=== PATIENT | female | born 1965 | race Caucasian/White ===

== ENCOUNTER 2024-12-09 13:36 | Day surgery (SDC) | payer MEDICAID, SELFPAY ==
--- NOTE | 2024-12-06 18:37 | PAT.ANESEVAL ---
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 When Was Last Pacemaker Check QUESTION #4 FULL TEXT: You/Your Family Experience fever (hyperthermia) with Anesthesia Last Oral Intake Last Oral intake: Last Oral Intake NPO since Meds taken in AM with sips of water? 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 Has anyone observed you stop No 12/06/24 09:40 breathing during sleep? STOP Results Positive 12/06/24 09:40 QUESTION #5 FULL TEXT : Do you snore loudly (louder than talking or can be heard through closed doors)? 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 Specify any problems Hx of Preganancy in last 3 No 12/06/24 09:40 Months Nurse Filling Out Transfusion DSCHRIBER 12/06/24 09:40 & Questions: Date: 12/06/24 12/06/24 09:40 Time: 09:42 12/06/24 09:40 Patient unable to answer at this time (ie. 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 grinder mill operator Hx Now No 12/06/24 09:40 Gestational Age (in weeks): EDC: Hx Hx Para Hx Section SAB No 12/06/24 09:40 PFSH Medical History (Updated 12/06/24 @ 09:55 by Marisa Chahal) Wears partial dentures Post-menopausal Depression Restless legs Syncope Smoker History of stress test History of echocardiogram Cardiology follow-up encounter Chest pain Scarring of lung RLQ abdominal pain Osteoporosis Aortic arch atherosclerosis HTN (hypertension) Constipation Home Medications ?Medication ?Instructions ?Recorded ?Last Taken ?Type amlodipine 5 mg tablet 5 mg PO QDAY 10/14/24 Unknown History aspirin 81 mg tablet,delayed 81 mg PO QDAY 10/14/24 Unknown History release atorvastatin 80 mg tablet 80 mg PO QHS 10/14/24 Unknown History bupropion HCl 150 mg 24 hr tablet, 150 mg PO QAM 10/14/24 Unknown History extended release clopidogrel 75 mg tablet 75 mg PO QDAY 10/14/24 Unknown History docusate calcium 240 mg capsule 240 mg PO QDAY 10/14/24 Unknown History ezetimibe 10 mg tablet 10 mg PO QDAY 10/14/24 Unknown History melatonin 3 mg capsule 3 mg PO HS PRN sleep 10/14/24 Unknown History ondansetron 4 mg disintegrating 4 mg PO Q6H PRN nausea and vomiting 10/14/24 Unknown History tablet polyethylene glycol 3350 17 gram 17 g PO QDAY PRN constipation 10/14/24 Unknown History oral powder packet ranolazine 500 mg tablet,extended 500 mg PO BID 10/14/24 Unknown History release,12 hr wheat dextrin 3 gram/4 gram oral 1.5 g PO BID 10/14/24 Unknown History powder Allergy/AdvReac Type Severity Reaction Status Date / Time lisinopril AdvReac Intermediate Other Verified 12/06/24 09:35 nitroglycerin AdvReac Intermediate Other Verified 12/06/24 09:35 Family History Father Alcohol abuse Mother Heart disease Brother Migraine Surgical History (Updated 12/06/24 @ 09:55 by Marisa Chahal) History of cardiac catheterization Hx of knee surgery History of coronary artery stent placement Social History housing: house Smoking Status: Current every day smoker tobacco type: cigarettes alcohol intake: never substance use type: does not use well-balanced diet: daily or most days caffeine: Yes Type: carbonated beverages Number of servings: 4 Audit: Pertinent Findings Pertinent Findings EKG Perinent findings: December 05, 2024. Sinus rhythm Stress test pertinent findings: February 02, 2024. Mildly positive for ischemia on EKG. Nuclear imaging showed grossly no ischemia or infarct. Ejection fraction was 66% with normal perfusion. Perfusion was similar in 2022. Echo (EF%) pertinent findings: April 25, 2024. Ejection fraction 60 to 65%. No aortic stenosis noted. Heart catheterization pertinent findings: April 25, 2024. 1. Normal systolic ejection fraction of 55 to 60%. 2. Previous drug-eluting stent to the mid LAD-patent 3. Previous drug-eluting stent to the proximal left circumflex?patent. 4. Right coronary artery is normal sized and has moderate diffuse disease. 5. Continue aggressive medical therapy and risk factor modification. Consult pertinent findings: July 28, 2024. 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 1. Vertigo-patient has a prescription for meclizine. 2. Fatigue-she has been weaned off metoprolol after the last visit. 3. Atypical chest pain-patient reports improved symptoms with initiation of Ranexa. Patient is intolerant to nitroglycerin and isosorbide. She will continue amlodipine. There is a significant chance that the heartburn or esophageal spasm is the etiology of her symptoms. 4. Coronary artery disease?stable per last cardiac cath Recommendation Anesthesia Recommendation Anesthesia recommendation: OPTIMIZED for anesthesia
[2024-12-09] VITALS (8 sets, daily range): BP systolic 85–140; BP diastolic 63–73; PULSE 72–85; RESP 14–20; TEMP 36.3–36.8; O2SAT 92–100; BMI 25.1
--- NOTE | 2024-12-09 13:46 | PCM.PRE.AN2 ---
ASA Classification* ASA Classification ASA Classification: 2 Assessment & Plan Anesthesia* Anesthesia Assessment Anesthesia Assessment: Discussed sedation and/or anesthesia options, risks, benefits, and alternatives with patient/parents/legal guardian/POA. Questions invited. The patient/parents/legal guardian/POA seems to understand and agrees to proceed with anesthesia plan. Reviewed the physical assessment, medical history, allergy history and patient home medications list prior to surgery/procedure/anesthetic and documented any changes. Performed airway and anesthesia risk assessments. 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 When Was Last Pacemaker Check QUESTION #4 FULL TEXT: You/Your Family Experience fever (hyperthermia) with Anesthesia Last Oral Intake Last Oral intake: Last Oral Intake NPO since Meds taken in AM with sips of water? 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 regional consultant Female Yes 12/06/24 09:40 HX of Motion Sickness No 12/06/24 09:40 HX of N/V After Surgery No 12/06/24 09:40 Non-Smoker No 12/06/24 09:40 Duration of Surgery greater No 12/06/24 09:40 than 60 minutes Number of Risk Factors 1 12/06/24 09:40 PONV Score Low Risk 12/06/24 09:40 Respiratory Assessment Respiratory Assessment - marketing regional consultant: Respiratory Tract Infection Hx - marketing regional consultant Hx Respiratory Tract Infection No 12/06/24 09:40 STOP Sleep Apnea STOP Sleep Apnea - marketing regional consultant: STOP Sleep Apnea - marketing regional consultant Hx Hypertension Yes: CONTROLLED WITH MEDS 12/06/24 09:40 Hx Sleep Apnea No 12/06/24 09:40 CPAP BIPAP Do you snore loudly (louder No 12/06/24 09:40 than talking or can be heard Do you often feel tired/ Yes 12/06/24 09:40 fatigued/ sleepy during daytime? Has anyone observed you stop No 12/06/24 09:40 breathing during sleep? STOP Results Positive 12/06/24 09:40 QUESTION #5 FULL TEXT : Do you snore loudly (louder than talking or can be heard through closed doors)? 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 Specify any problems Hx of Preganancy in last 3 No 12/06/24 09:40 Months Nurse Filling Out Transfusion DSCHRIBER 12/06/24 09:40 & Questions: Date: 12/06/24 12/06/24 09:40 Time: 09:42 12/06/24 09:40 Patient unable to answer at this time (ie. confused, unrespo /Reproduction History /Reproductive History - marketing regional consultant: /Reproductive Hx- marketing regional consultant Hx Now No 12/06/24 09:40 Gestational Age (in weeks): EDC: Hx Hx Para Hx Section SAB No 12/06/24 09:40 PFSH Medical History Wears partial dentures Post-menopausal Depression Restless legs Syncope Smoker History of stress test History of echocardiogram Cardiology follow-up encounter Chest pain Scarring of lung RLQ abdominal pain Osteoporosis Aortic arch atherosclerosis HTN (hypertension) Constipation Home Medications ?Medication ?Instructions ?Recorded ?Last Taken ?Type amlodipine 5 mg tablet 5 mg PO QDAY 10/14/24 Unknown History aspirin 81 mg tablet,delayed 81 mg PO QDAY 10/14/24 Unknown History release atorvastatin 80 mg tablet 80 mg PO QHS 10/14/24 Unknown History bupropion HCl 150 mg 24 hr tablet, 150 mg PO QAM 10/14/24 Unknown History extended release clopidogrel 75 mg tablet 75 mg PO QDAY 10/14/24 Unknown History docusate calcium 240 mg capsule 240 mg PO QDAY 10/14/24 Unknown History ezetimibe 10 mg tablet 10 mg PO QDAY 10/14/24 Unknown History melatonin 3 mg capsule 3 mg PO HS PRN sleep 10/14/24 Unknown History ondansetron 4 mg disintegrating 4 mg PO Q6H PRN nausea and vomiting 10/14/24 Unknown History tablet polyethylene glycol 3350 17 gram 17 g PO QDAY PRN constipation 10/14/24 Unknown History oral powder packet ranolazine 500 mg tablet,extended 500 mg PO BID 10/14/24 Unknown History release,12 hr wheat dextrin 3 gram/4 gram oral 1.5 g PO BID 10/14/24 Unknown History powder Allergy/AdvReac Type Severity Reaction Status Date / Time lisinopril AdvReac Intermediate Other Verified 12/06/24 09:35 nitroglycerin AdvReac Intermediate Other Verified 12/06/24 09:35 Family History Father Alcohol abuse Mother Heart disease Brother Migraine Surgical History History of cardiac catheterization Hx of knee surgery History of coronary artery stent placement Social History housing: house Smoking Status: Current every day smoker tobacco type: cigarettes alcohol intake: never substance use type: does not use well-balanced diet: daily or most days caffeine: Yes Type: carbonated beverages Number of servings: 4 Review of Systems (Anesthesia) ROS Narrative System reviewed and no additional complaints, except as documented.
--- NOTE | 2024-12-09 14:45 | COLBX_PTH ---
PATIENT: ROBER STOVER LOC: EN U#:[id number] AGE/SX: 59/F ROOM: RE12/09/[address]: Dr. Bj George DO : 1965 BED: DIS: 12/09/2024 SPEC #: [id number] RECD: 12/09/24 17:04 STATUS: REJI ZUNIGA #: [id number] ALEXEI: 12/09/24 14:[address]: Bj George DEPT: SURGICAL PATHOLOGY RECD BY: Bree Jorge ENTERED: 12/12/24 08:03 SP TYPE: COLON BX JESSIKA DR: Dr. Best Younger DO Tissues: A - COLON BIOPSY B - Ascending colon C - Rectum, NOS Procedures: Surgery Specimen Level IV HEADER OPERATION: Colonoscopy, polypectomy, biopsy PRE-OP DIAGNOSIS: Constipation TISSUE SUBMITTED: A- Splenic flexure polyp, B- Ascending colon polyp, C- Rectal polyp biopsy MICROSCOPIC DIAGNOSIS A. Colon, Splenic Flexure, Polyp, Biopsy: * Tubular adenoma. B. Ascending Colon, Polyp, Biopsy: * Tubular adenoma. C. Rectum, Polyp, Biopsy: * Hyperplastic polyp. MICROSCOPIC DESCRIPTION Slides are reviewed. GROSS DESCRIPTION A. Received in formalin in a container labeled with the patient's name, date of , and splenic flexure polyp are multiple fragments of diaz-brown possible soft tissue admixed with fecal debris measuring 2.3 x 0.7 x 0.2 cm in aggregate. The soft tissue is unable to be . Entirely submitted in A1. B. Received in formalin in a container labeled with the patient's name, date of , and ascending colon polyp is a 0.6 x 0.3 x 0.2 cm fragment of diaz-pink mucosal tissue. Entirely submitted in B1. C. Received in formalin in a container labeled with the patient's name, date of , and rectal polyp biopsy is a 0.3 x 0.3 x 0.3 cm fragment of diaz-pink mucosal tissue. Entirely submitted in C1. [facility] 12-12-2024 CPT:22647z3
--- NOTE | 2024-12-09 14:56 | PCM.HP.STD ---
HPI - General General Date of Admission: 12/09/24 Date of Service: 12/09/24 Chief Complaint: constipation and Screening colon HPI Narrative ROBER STOVER, is a 59 F who presents for the evaluation of constipation Pt referred from her PCP for evaluation of constipation. She is having a bm once a day but is small and difficult to pass. Prior to this she was having loose stools for years. This has been going on since going on a new medication for her heart over a month ago. Unsure which med but thinks it may be amlodipine. She has never had a colonoscopy but is open to having one. She has tried miralax, fiber, suppositories, enemas, and lactulose. Only lactulose gave her results but was only given 4 days worth of treatment. Has some bleeding when she wipes due to straining. She is feeling bloated. She denies abd pain, n/v, heartburn, melena, loss of appetite or unintentional weight loss. She is not aware of any fail hx of colon cancer. Denies hx of drinking alcohol. She has smoked cigarettes for years; currently smoking 4 cigarettes a day. Abdominal x-ray 09.30.24; No bowel obstruction. fecal loading of the colon. [facility] Medical History Wears partial dentures Post-menopausal Depression Restless legs Syncope Smoker History of stress test History of echocardiogram Cardiology follow-up encounter Chest pain Scarring of lung RLQ abdominal pain Osteoporosis Aortic arch atherosclerosis HTN (hypertension) Constipation Home Medications ?Medication ?Instructions ?Recorded ?Last Taken ?Type amlodipine 5 mg tablet 5 mg PO QDAY 10/14/24 Unknown History aspirin 81 mg tablet,delayed 81 mg PO QDAY 10/14/24 12/05/24 History release atorvastatin 80 mg tablet 80 mg PO QHS 10/14/24 Unknown History bupropion HCl 150 mg 24 hr tablet, 150 mg PO QAM 10/14/24 Unknown History extended release clopidogrel 75 mg tablet 75 mg PO QDAY 10/14/24 12/05/24 History docusate calcium 240 mg capsule 240 mg PO QDAY 10/14/24 Unknown History ezetimibe 10 mg tablet 10 mg PO QDAY 10/14/24 Unknown History melatonin 3 mg capsule 3 mg PO HS PRN sleep 10/14/24 Unknown History ondansetron 4 mg disintegrating 4 mg PO Q6H PRN nausea and vomiting 10/14/24 Unknown History tablet polyethylene glycol 3350 17 gram 17 g PO QDAY PRN constipation 10/14/24 Unknown History oral powder packet ranolazine 500 mg tablet,extended 500 mg PO BID 10/14/24 Unknown History release,12 hr wheat dextrin 3 gram/4 gram oral 1.5 g PO BID 10/14/24 Unknown History powder Allergy/AdvReac Type Severity Reaction Status Date / Time lisinopril AdvReac Intermediate Other Verified 12/09/24 14:06 nitroglycerin AdvReac Intermediate Other Verified 12/09/24 14:06 Family History Father Alcohol abuse Mother Heart disease Brother Migraine Surgical History History of cardiac catheterization Hx of knee surgery History of coronary artery stent placement Social History housing: house Smoking Status: Current every day smoker tobacco type: cigarettes alcohol intake: never substance use type: does not use well-balanced diet: daily or most days caffeine: Yes Type: carbonated beverages Number of servings: 4 ROS Constitutional Constitutional: Denies fatigue, fever(s), poor appetite, weight gain or weight loss Gastrointestinal Gastrointestinal: Denies belching, bloating, change in bowel habits, change in stool character, chewing difficulty, coffee ground emesis, constipation, cramping, diarrhea, dyspepsia, dysphagia, early satiety, excessive flatus, fecal incontinence, heartburn, hematemesis, hematochezia, hemorrhoids, loose stools, melena, nausea, odynophagia, rectal bleeding, tenesmus, vomiting or weight changes Vital Signs Vital Signs Vital Signs: 12/09/24 14:07 12/09/24 14:07 Temperature 97.8 F Temperature Source Temporal Pulse Rate 85 Respiratory Rate 16 Respiratory Pattern Normal Blood Pressure 140/73 H Blood Pressure Mean 95 Blood Pressure Source Monitor Blood Pressure Position Semi-Fowlers Blood Pressure Location Left Arm Pulse Ox 100 Oxygen Delivery Method Room Air Weight Weight: 141 lb 12.116 oz Body Mass Index (BMI) 25.1 Physical Exam Const alert, oriented x3, no apparent distress and healthy appearing General Appearance: cooperative GI normal to inspection, nondistended, normoactive bowel sounds, soft to palpation, non-tender and non-distended Percussion: normal to percussion Rectal Exam: deferred Assessment & Plan Assessment/Plan (1) Constipation: PLAN: Assessment and Plan Assessment and Plan (1) Constipation: Status: Acute Plan: This is a 59 yo female pt here today for evaluation of constipation x1 month. Pt has never had constipation prior to this. SHe does note a change in her medications around the time this started. Due to the abrupt onset of constipation, I feel colonoscopy is necessary considering she has never had one. She is agreeable and will be scheduled. In the mean time, samples of Linzess were given and she was educated on proper use. Prescription for Linzess 72 mcg daily sent to the pharmacy. She is taking fiber supplement daily and i encouraged she continue taking this.She will call our office if there are no improvements in her constipation after 2 weeks. -Colonoscopy -Start Linzess 72 mcg daily -Continue fiber supplement Medications: New linaclotide (Linzess) 72 mcg PO QAM 60 caps 2RF
--- NOTE | 2024-12-09 15:34 | PCM.POST.ANE ---
Anesthesia: Postop Eval I Current Vital Signs Temperature: 97.3 F Pulse Rate: 82 Blood Pressure: 93/65 Respiratory Rate: 18 Pulse Ox: 97 Oxygen Delivery Method: Room Air Assessment Airway patent: Yes Spontaneous unlabored respirations: Yes Mental status: Asleep nausea: No Vomiting: No Anesthesia Complication: No Fluid Hydration Crystalloid volume administer (ml): 40 Total IV fluid infused: 40 Progress Note Anesthesia document: Postop Eval 1 completed: Yes
--- NOTE | 2024-12-09 15:35 | OP.CCLET_ITS ---
12/09/2024 Best Younger Do Re : Colonoscopy procedure for Bel Smithr Carisa This procedure was performed on Monday, December 09, 2024. My impressions and recommendations are as follows: Impressions : - Preparation of the colon was fair. - Diverticulosis in the recto-sigmoid colon, in the sigmoid colon and in the descending colon. - Two 7 mm polyps in the rectum and in the ascending colon, removed with a jumbo cold forceps. Resected and retrieved. - One 10 mm polyp at the splenic flexure, removed with a hot snare. Resected and retrieved. Recommendations : - Repeat colonoscopy in 3 years for surveillance. - Continue present medications. My findings are described in the full procedure note, which is enclosed. If I can be of further assistance, please feel free to contact me at . Sincerely, Bj George, 12/09/2024 3:35:21 PM This report has been signed electronically.
--- NOTE | 2024-12-09 15:35 | OP.COLON_ITS ---
Patient Name: Bel Winston Procedure Date: 12/09/2024 3:01 PM Date of : 1965 Age: 59 Procedure: Colonoscopy Indications: Screening for colorectal malignant neoplasm Providers: Bj George DO Referring MD: Best Younger Do Medicines: Monitored Anesthesia Care Patient Profile: This is a 59 year old female. Refer to note in patient chart for documentation of history and physical. Last Colonoscopy: date unknown. Unable to locate last colonoscopy report. Complications: No immediate complications. Procedure: Pre-Anesthesia Assessment: - Prior to the procedure, a History and Physical was performed, and patient medications and allergies were reviewed. The patient is competent. The risks and benefits of the procedure and the sedation options and risks were discussed with the patient. All questions were answered and informed consent was obtained. Patient identification and proposed procedure were verified by the physician in the pre-procedure area. Mental Status Examination: alert and oriented. Airway Examination: normal oropharyngeal airway and neck mobility. Respiratory Examination: clear to auscultation. CV Examination: normal. ASA Grade Assessment: II - A patient with mild systemic disease. After reviewing the risks and benefits, the patient was deemed in satisfactory condition to undergo the procedure. The anesthesia plan was to use moderate sedation / analgesia (conscious sedation). Immediately prior to administration of medications, the patient was re-assessed for adequacy to receive sedatives. The heart rate, respiratory rate, oxygen saturations, blood pressure, adequacy of pulmonary ventilation, and response to care were monitored throughout the procedure. The physical status of the patient was re-assessed after the procedure. After I obtained informed consent, the scope was passed under direct vision. Throughout the procedure, the patient's blood pressure, pulse, and oxygen saturations were monitored continuously. The Colonoscope was introduced through the anus and advanced to the cecum, identified by appendiceal orifice and ileocecal valve. The colonoscopy was performed without difficulty. The patient tolerated the procedure well. The quality of the bowel preparation was fair. Scope In: 3:11:57 PM Scope Withdrawal Time 0 hours 5 minutes 59 seconds Scope Out: 3:23:42 PM Total Procedure Duration Time 0 hours 11 minutes 45 seconds Findings: The perianal and digital rectal examinations were normal. Multiple small and large-mouthed diverticula were found in the recto-sigmoid colon, sigmoid colon and descending colon. Two sessile polyps were found in the rectum and ascending colon. The polyps were 7 mm in size. These polyps were removed with a jumbo cold forceps. Resection and retrieval were complete. Verification of patient identification for the specimen was done. Estimated blood loss was minimal. A 10 mm polyp was found in the splenic flexure. The polyp was sessile. The polyp was removed with a hot snare. Resection and retrieval were complete. Verification of patient identification for the specimen was done. Estimated blood loss was minimal. Impression: - Preparation of the colon was fair. - Diverticulosis in the recto-sigmoid colon, in the sigmoid colon and in the descending colon. - Two 7 mm polyps in the rectum and in the ascending colon, removed with a jumbo cold forceps. Resected and retrieved. - One 10 mm polyp at the splenic flexure, removed with a hot snare. Resected and retrieved. Recommendation: - Repeat colonoscopy in 3 years for surveillance. - Continue present medications. Procedure Code(s): --- Professional --- 98639, Colonoscopy, flexible; with removal of tumor(s), polyp(s), or other lesion(s) by snare technique 24073, 59, Colonoscopy, flexible; with biopsy, single or multiple CPT copyright 2021 [employer]. All rights reserved. The codes documented in this report are preliminary and upon founder chairman and chief creative officer review may be revised to meet current compliance requirements. Bj George DO 12/09/2024 3:35:21 PM This report has been signed electronically. Number of Addenda: 0 Note Initiated On: 12/09/2024 3:01 PM
--- NOTE | 2024-12-09 15:40 | PCM.POSTANE2 ---
Anesthesia Postop Eval I Sum Postop Eval Completion status Anesthesia document: Postop Eval 1 completed: Yes Anesthesia Postop Eval I Summary Anesthesia Postop Eval I Summary: Anesthesia Postop Eval I: Assessment Summary Airway patent Yes 12/09/24 15:36 [email or web address] Spontaneous unlabored Yes 12/09/24 15:36 [email or web address] respirations Mental status Asleep 12/09/24 15:36 [email or web address] nausea No 12/09/24 15:36 [email or web address] Vomiting No 12/09/24 15:36 [email or web address] Anesthesia Postop Eval I: Fluid Summary Crystalloid volume administer 40 12/09/24 15:36 [email or web address] (ml) Colloids volume administered ( ml) Blood Product volume administered (ml) Total IV fluid infused 40 12/09/24 15:36 [email or web address] Anesthesia Postop Eval I: Summary Notes Anesthesia Complication No 12/09/24 15:36 [email or web address] Anesthesia Complication Comment: Post-operative progress note Anesthesia: Postop Eval II Evaluation Mental status: Awake Pain Level: 0 nausea: No Vomiting: No
== END 2024-12-09 16:12 | disposition home or self-care (01) ==
LOC: EN 13:37 → AC 13:53 → ACINP 14:03 → AC 14:05
PROVIDERS: PCP Student in an Organized Health Care Education/Training Program; Referring Provider Student in an Organized Health Care Education/Training Program; Visit Provider Internal Medicine Gastroenterology
PROC: 0DJD8ZZ Inspection of Lower Intestinal Tract, Via Natural or Artificial Opening Endoscopic (ICD-10-PCS; CPT 45378; principal; 2024-12-09 14:40)
DX: Z12.11 Encounter for screening for malignant neoplasm of colon (principal); K59.00 Constipation, unspecified; K57.30 Diverticulosis of large intestine without perforation or abscess without bleeding; D12.2 Benign neoplasm of ascending colon; D12.3 Benign neoplasm of transverse colon; K62.1 Rectal polyp; I10 Essential (primary) hypertension; F17.210 Nicotine dependence, cigarettes, uncomplicated; Z79.82 Long term (current) use of aspirin; Z79.02 Long term (current) use of antithrombotics/antiplatelets; Z79.899 Other long term (current) drug therapy; Z95.5 Presence of coronary angioplasty implant and graft
CPT/HCPCS: 45380; 45385; 88305; A4216; J2405